=== PATIENT | male | born 1980 | race Caucasian/White ===

== ENCOUNTER 2018-06-28 16:03 | Emergency (ER) | payer BC ==
[~2018-06-28] VITALS: Ht 177.8 cm; Wt 81.2 kg
[2018-06-28 16:09] VITALS: BP_SYST 151
[2018-06-28] MEDS ORDERED: KETOROLAC TROMETHAMINE 60 MG/2 ML VIAL IM ONE (19:15)
[2018-06-28 20:01] VITALS: BP_SYST 135
== END 2018-06-28 20:01 | disposition home or self-care (01) ==
LOC: SED 16:03
DX: R07.89 Other chest pain (principal); R03.0 Elevated blood-pressure reading, without diagnosis of hypertension
CPT/HCPCS: 93005; 99283; J1885; 99282

== ENCOUNTER 2018-07-17 17:39 | Emergency (ER) | payer BC ==
[~2018-07-17] VITALS: Ht 177.8 cm; Wt 79.4 kg
[2018-07-17 17:46] VITALS: BP_SYST 144
--- NOTE | 2018-07-17 18:03 | NUR ---
Patient to ER bed 3 to gown for evaluation. Side rails up. Report given to Pauly CUMMINS.
--- NOTE | 2018-07-17 18:05 | NUR ---
ER at bedside examining patient.
--- NOTE | 2018-07-17 18:05 | NUR ---
patient arrived from home AOx4 with c/o left sided numbness. patient states this is new onset and this has never happen to him before. patient has equal bilateral strength to all extremites. patient has no speech, gait or cognitive impairement at the time of assessment. patient also c/o throat tightening. patient is able to swallow liquids without distress, drooling or otherwise. throat is pink. no other complaint or injury at this time.
[2018-07-17] MEDS ORDERED: NACL 0.9% 1,000 ML IV ONE (18:06)
[2018-07-17 18:45] LABS: BILIRUBIN,URINE NEGATIVE (NEGATIVE); CLARITY/URINE CLEAR (CLEAR); COLOR,URINE YELLOW (YELLOW); GLUCOSE,URINE NEGATIVE (NEGATIVE); KETONES,URINE NEGATIVE (NEGATIVE); LEUKOCYTE ESTERASE ,URINE NEGATIVE (NEGATIVE); NITRITE, URINE NEGATIVE (NEGATIVE); PH,URINE 6.5 (5.0-8.0); PROTEIN URINE NEGATIVE (NEGATIVE); UROBILINOGEN,URINE 0.2 (0.2-1.0)
[2018-07-17 18:46] LABS: BLOOD, URINE TRACE (NEGATIVE)
[2018-07-17 18:51] LABS: BACTERIA,URINE RARE /HPF (None Seen); RBC,URINE 0-3 /HPF (0-3); WBC,URINE 0-3 /HPF (0-3)
[2018-07-17 18:58] LABS: BASOPHILS % (AUTO) 0.8 % (0.0-2.0); EOSINOPHILS % (AUTO) 2.5 % (0.0-4.0); HEMATOCRIT 44.4 % (36-54); HEMOGLOBIN 15.4 g/dL (14.0-18.0); LYMPHOCYTES % (AUTO) 33.5 % (20.5-51.5); MEAN CORPUSCULAR HEMOGLOBIN 31 pg (27-31); MEAN CORPUSCULAR HGB CONC 35 % (32-36); MEAN CORPUSCULAR VOLUME 90 fL (79.0-98.0); MONOCYTES # (AUTO) 0.4 K/uL (0.0-1.0); MONOCYTES % (AUTO) 6.4 % (1.7-9.3); NEUTROPHILS # (AUTO) 3.4 K/uL (1.8-7.7); NEUTROPHILS % (AUTO) 56.8 % (40.0-70.0); PLATELET COUNT (AUTO) 275 K/uL (130-430); RED BLOOD CELL COUNT(AUTO) 4.93 MIL/uL (4.2-6.2); RED CELL DISTRIBUTION WIDTH 12.8 % (9.0-15.0); WHITE BLOOD COUNT (AUTO) 6.1 K/uL (4.8-10.8)
[2018-07-17 18:59] LABS: BASOPHILS # (AUTO) 0.1 K/uL (0.0-0.2); EOSINOPHILS # (AUTO) 0.2 K/uL (0.0-0.4)
--- NOTE | 2018-07-17 19:00 | NUR ---
patient sent to CT in stable condition.
[2018-07-17 19:01] LABS: INR 0.9 (0.80-1.20); PROTHROMBIN TIME 9.3 SECS (9.5-12.5)
[2018-07-17 19:14] LABS: CALCIUM 9.7 mg/dL (8.4-11.0); CREATININE 0.83 mg/dL (0.55-1.30); POTASSIUM 4.1 mmol/L (3.5-5.1)
[2018-07-17 19:18] LABS: ALBUMIN 4.9 g/dL (3.4-4.8); TOTAL BILIRUBIN 0.5 mg/dL (0.0-1.0)
--- NOTE | 2018-07-17 19:25 | NUR ---
patient returned to bed in stable condition
[2018-07-17 20:21] VITALS: BP_SYST 129
--- NOTE | 2018-07-17 20:22 | NUR ---
Patient given written and verbal discharge instructions and verbalizes understanding. ER MD discussed with patient the results and treatment provided. Patient in stable condition. ID arm band removed. IV catheter removed intact and dressing applied, no active bleeding. Rx of Prednisone, Artificial tears given. Patient educated on pain management and to follow up with PMD. Pain Scale0/10. Opportunity for questions provided and answered. Medication side effect fact sheet provided.
== END 2018-07-17 20:21 | disposition home or self-care (01) ==
LOC: SED 17:39
DX: G51.0 Bell's palsy (principal); I10 Essential (primary) hypertension; F12.90 Cannabis use, unspecified, uncomplicated; E78.00 Pure hypercholesterolemia, unspecified
CPT/HCPCS: 36415; 70450; 71045; 80053; 81000; 82550; 83605; 83690; 84484; 85025; 85610; 85730; 87040; 93005; 99284; J7030